=== PATIENT | male | born 1940 | race Caucasian/White ===

== ENCOUNTER 2024-02-16 13:32 | Emergency (ER) | payer MEDICARE, BC ==
[2024-02-16] VITALS (15 sets, daily range): BP systolic 133–162; BP diastolic 57–81; PULSE 68–90; TEMP 97.5–98.2
[~2024-02-16] VITALS: Ht 180.3 cm; Wt 103.6 kg
[2024-02-16 15:56] LABS: MEAN CELL VOLUME 96 fl (80.0-100.0); MEAN CORPUSCULAR HGB CONC 32 g/dl (33.0-37.0); PLATELET COUNT 224 K/mm3 (130-400); RED BLOOD COUNT 2.58 M/mm3 (4.20-5.60); REDCELL DISTRIBUTION WIDTH-CV 14.5 % (11.5-14.5)
[2024-02-16 15:57] LABS: HEMATOCRIT 24.8 % (42.0-52.0); HEMOGLOBIN 7.9 g/dl (13.5-18.0); MEAN CORPUSCULAR HEMOGLOBIN 31 pg (27-31)
[2024-02-16 16:26] LABS: ALBUMIN 3.5 g/dL (3.4-4.8); BILIRUBIN,TOTAL 0.7 mg/dL (0.2-1.2); CALCIUM 10.1 mg/dL (8.4-10.2); CREATININE, serum 1.79 mg/dL (0.72-1.25); POTASSIUM 4.3 mEq/L (3.5-4.5)
[2024-02-16 16:30] LABS: BAND 1 % (0-10); BASOPHIL 1 % (0-2); EOSINOPHIL 2 % (0-4); LYMPHOCYTE 10 % (20.0-51.0); MICROCYTOSIS 1+; NEUTROPHILS 79 % (42.0-75.2)
[2024-02-16] MEDS ORDERED: Acetaminophen 500 MG TAB PO ONE (19:45)
== END 2024-02-16 22:42 | disposition home or self-care (01) ==
LOC: COL.ER 13:32
PROVIDERS: Personal Emergency Response Attendant
DX: S70.12XA Contusion of left thigh, initial encounter (principal); W19.XXXA Unspecified fall, initial encounter
CPT/HCPCS: P9016

== ENCOUNTER → 2024-05-06 | Outpatient (CLI) | payer MEDICARE, BC ==
[2024-05-06 08:52] LABS: HEMATOCRIT 40.9 % (42.0-52.0); HEMOGLOBIN 13.2 g/dl (13.5-18.0); MEAN CELL VOLUME 97 fl (80.0-100.0); MEAN CORPUSCULAR HEMOGLOBIN 31 pg (27-31); MEAN CORPUSCULAR HGB CONC 32 g/dl (33.0-37.0); MEAN PLATELET VOLUME 10.3 fl (7.4-10.4); PLATELET COUNT 191 K/mm3 (130-400); REDCELL DISTRIBUTION WIDTH-CV 13.9 % (11.5-14.5)
[2024-05-06 09:08] LABS: CALCIUM 10.2 mg/dL (8.4-10.2); CREATININE, serum 1.33 mg/dL (0.72-1.25); POTASSIUM 4.1 mEq/L (3.5-4.5)
== END ==
LOC: COL.LAB 08:15
DX: R94.39 Abnormal result of other cardiovascular function study (principal)